=== PATIENT | male | born 1945 | race Caucasian/White ===

== ENCOUNTER 2016-08-22 06:18 | Day surgery (SDC) | payer MEDICARE, OTHER ==
[2016-08-22] MEDS ORDERED: Sodium Chloride 0.9% 1000 ML 1,000 ML IV SCH (06:45)
--- NOTE | 2016-08-22 07:52 | HP ---
DATE OF SURGERY: 08/22/2016 ADMISSION DIAGNOSIS: Epigastric pain, heartburn. ANTICIPATED PROCEDURE: EGD. HISTORY OF PRESENT ILLNESS: The patient had cholecystectomy two years ago. He seems to be getting worse epigastric pain. PAST MEDICAL HISTORY: ALLERGIES: NONE. MEDICATIONS: He has been on medications Losartan, hydrochlorothiazide, Verapamil. PAST SURGICAL HISTORY: Gallbladder. Double knee. SOCIAL HISTORY: Negative. FAMILY HISTORY: Negative. REVIEW OF SYSTEMS: PHYSICAL EXAMINATION: VITAL SIGNS: Normal. CHEST: Clear. COR: Regular. ABDOMEN: No palpable organomegaly or mass. IMPRESSION: Epigastric pain. PLAN: EGD.
[2016-08-22] MEDS ORDERED: DEMEROL 50 MG IJ ONE ×2 (08:00)
[2016-08-22] MEDS ORDERED: VERSED 5 MG/5 ML IV ONE (08:00)
[2016-08-22 11:07] VITALS: BP 135/79; PULSE 67; O2SAT 98
--- NOTE | 2016-08-22 13:00 | OP ---
SURGERY DATE: 08/22/16 SURGERY TIME: 819 PREOPERATIVE DIAGNOSIS: 1. EPIGASTRIC PAIN. POSTOPERATIVE DIAGNOSIS: 1. VERY LIGHT THRUSH OF THE ESOPHAGUS. 2. SUPERFICIAL GASTRIC ULCER. PROCEDURE: 1. EGD with biopsy for SARAH-test. SURGEON: Andrew French M.D. ANESTHESIA: IV sedation. COMPLICATIONS: None. CONDITION: Stable. INDICATION: Patient requiring evaluation. OPERATIVE PROCEDURE: Taken to endoscopy. Left lateral decubitus position. After suitable sedation obtained, scope introduced. There was a very light thrush in the lower pharynx/esophageal area. The esophagogastric junction slight irritation. There was a pinpoint gastric ulcer in the antrum. [employer] biopsy for SARAH-test. The duodenal bulb was satisfactory. 2nd portion satisfactory. The scope withdrawn and looped upon itself. Satisfactory. Scope withdrawn. IMPRESSION: 1. PINPOINT GASTRIC ULCER. 2. MILD THRUSH. Patient was given prescription for Protonix and also 2 Diflucan tablets.
== END 2016-08-22 10:00 | disposition home or self-care (01) ==
LOC: SDC 06:18
PROVIDERS: ATTEND Surgery
PROC: 0DB68ZZ Excision of Stomach, Via Natural or Artificial Opening Endoscopic (ICD-10-PCS; principal; 2016-08-22)
DX: B37.81 Candidal esophagitis (principal); R10.13 Epigastric pain; K25.9 Gastric ulcer, unspecified as acute or chronic, without hemorrhage or perforation
CPT/HCPCS: 87081; J2175; J2250

== ENCOUNTER 2019-09-09 08:54 | Day surgery (SDC) | payer MEDICARE, OTHER ==
--- NOTE | 2019-09-07 14:36 | HP ---
DATE OF SURGERY: 09/09/2019 ADMISSION DIAGNOSIS: Screening. ANTICIPATED PROCEDURE: Colonoscopy. HISTORY OF PRESENT ILLNESS: The patient was seen for screening colonoscopy, referred by Dr. Thomas. He had a colonoscopy back in 2012. PAST MEDICAL HISTORY: ALLERGIES: NONE. MEDICATIONS: Losartan, Carvedilol and hydrochlorothiazide. PAST SURGICAL HISTORY: Knee replacement. Gallbladder. SOCIAL HISTORY: Negative. FAMILY HISTORY: Negative. REVIEW OF SYSTEMS: Hypertension. PHYSICAL EXAMINATION: VITAL SIGNS: Normal. CHEST: Clear. COR: Regular. ABDOMEN: Satisfactory. PLAN: Colonoscopy.
[2019-09-09] MEDS ORDERED: DEMEROL 50 MG SDV IV ONE (08:55)
[2019-09-09] MEDS ORDERED: VERSED 5 MG/5 ML IV ONE (08:55)
[2019-09-09] MEDS ORDERED: Lactated Ringers 1,000 ML IV SCH (09:30)
[2019-09-09] MEDS ORDERED: Lactated Ringers 1,000 ML IV ONE (09:42)
[2019-09-09 12:44] VITALS: BP 143/75; PULSE 75; O2SAT 96
--- NOTE | 2019-09-10 07:46 | OP ---
SURGERY DATE/TIME: 09/09/2019 1129 PREOPERATIVE DIAGNOSIS: Screening. POSTOPERATIVE DIAGNOSIS: A 1.4 cm polyp at the base of the appendix. PROCEDURE: Colonoscopy complete to cecum with hot polypectomy x1. SURGEON: Andrew French M.D. ANESTHESIA: IV sedation 15 minutes monitored. COMPLICATIONS: None. CONDITION: Stable. INDICATION: A patient requiring evaluation. DESCRIPTION OF PROCEDURE: Taken to endoscopy suite. IV sedation titrated. Oximetry kept over 90%. Comfort level satisfactory. Anal digital examination satisfactory. Scope introduced. Prep was good but not excellent. The scope was advanced to the cecum. Base of cecum clearly identified. Appendiceal orifice clearly identified. There was a 1.4 cm polyp that was just a little inferior and medial to the orifice, this was taken with two bites with hot biopsy forceps. A very substantial polyp. It looked like it was totally coagulated. The rest of exam circumferential withdrawal was satisfactory. The patient tolerated the procedure satisfactorily. Follow up in three years.
== END 2019-09-09 12:55 | disposition home or self-care (01) ==
LOC: SDC 08:54
PROVIDERS: ATTEND Surgery
DX: Z12.11 Encounter for screening for malignant neoplasm of colon (principal); I10 Essential (primary) hypertension; K63.5 Polyp of colon; Z79.899 Other long term (current) drug therapy
CPT/HCPCS: 88305; J2175; J2250

== ENCOUNTER 2020-12-21 06:55 | Day surgery (SDC) | payer MEDICARE, OTHER ==
--- NOTE | 2020-12-15 13:43 | HP ---
DATE OF SURGERY: 12/21/2020 HISTORY OF PRESENT ILLNESS: The patient presented with complaints of "Killer heartburn". He had been on some Protonix and states it is not helping very much. He reports he has a history of gastroesophageal reflux disease. PAST MEDICAL HISTORY: Hypertension. PAST SURGICAL HISTORY: Knee surgery. Gallbladder removed. ALLERGIES: PENICILLLIN. MEDICATIONS: Losartan, carvedilol, aspirin, Cartia, doxazosin, hydrochlorothiazide. FAMILY HISTORY: None reported. SOCIAL HISTORY: None reported. REVIEW OF SYSTEMS: CONSTITUTIONAL: Denies fever or chills. CHEST: Denies shortness of breath. CVS: Denies chest pain. ABDOMEN: Reports epigastric pain. Denies nausea, vomiting, diarrhea, constipation or rectal bleeding. PHYSICAL EXAMINATION: GENERAL: No acute distress. CHEST: Nonlabored. No shortness of breath. CVS: Regular rate and rhythm. ABDOMEN: Soft, nontender to palpation. EXTREMITIES: No edema. NEUROLOGIC: Alert. PSYCHIATRIC: Appropriate. IMPRESSION: Gastroesophageal reflux disease, epigastric pain. PLAN: EGD with Dr. Andrew French. As dictated by Mckenzie Malik NP.
[2020-12-21] MEDS ORDERED: Lactated Ringers 1,000 ML IV ONE (07:06)
[2020-12-21] MEDS ORDERED: Lactated Ringers 1,000 ML IV SCH (07:30)
[2020-12-21] MEDS ORDERED: DIPRIVAN 200 MG/20 ML IV ONE (09:30)
[2020-12-21] MEDS ORDERED: Xylocaine-Mpf 2% 5 Ml Vial ONE (09:30)
[2020-12-21 11:00] VITALS: BP 132/78; PULSE 60; O2SAT 99
--- NOTE | 2020-12-21 13:03 | OP ---
SURGERY DATE/TIME: 12/21/2020 7904 PREOPERATIVE DIAGNOSIS: Severe reflux. POSTOPERATIVE DIAGNOSES: 1) Grade C/D gastroesophageal reflux disease. He has been on a little bit of Protonix. I think it probably has improved some. 2) He has a 1 inch hiatal hernia. PROCEDURE: EGD. SURGEON: Andrew French M.D. ANESTHESIA: MAC. COMPLICATIONS: None. CONDITION: Stable. INDICATION: A patient requiring evaluation. DESCRIPTION OF PROCEDURE: Taken to endoscopy. MAC sedation provided. Scope introduced. Pharyngoesophageal junction normal. Esophagus normal down to 38 cm with a 2 cm rim of esophagitis grade C/D and I think it probably has improved a little since he has been on Protonix. He has a 1 inch hiatal hernia very deliberate hernia, well defined. The rest of the body, antrum normal. Pylorus normal. Duodenal bulb normal. Second portion normal. Medial wall of the duodenum normal. Scope withdrawn looped upon itself. 1 inch hiatal hernia. Scope withdrawn. The patient tolerated the procedure satisfactorily.
== END 2020-12-21 10:40 | disposition home or self-care (01) ==
LOC: SDC 06:55
PROVIDERS: ATTEND Surgery
DX: K21.9 Gastro-esophageal reflux disease without esophagitis (principal); K44.9 Diaphragmatic hernia without obstruction or gangrene
CPT/HCPCS: 99100; J2704

== ENCOUNTER 2022-08-29 06:16 | Day surgery (SDC) | payer MEDICARE, OTHER ==
--- NOTE | 2022-08-28 11:30 | HP ---
DATE OF SURGERY: 08/29/2022 HISTORY OF PRESENT ILLNESS: The patient is a 77-year-old male who presents for endoscopy. He reports some diarrhea after having cholecystectomy. He also has some constipation. He stated he had some oily stools with crampy lower abdominal pain. His last scope was in 2019 and the patient had some polyps. He has been using some [id number] medicine that helped with the constipation. PAST MEDICAL HISTORY: Hypertension, diarrhea, constipation, gastroesophageal reflux disease. PAST SURGICAL HISTORY: Knee surgery. Cholecystectomy. ALLERGIES: PENICILLIN. MEDICATIONS: Doxazosin, Verapamil, losartan, hydrochlorothiazide, pantoprazole. FAMILY HISTORY: None reported. SOCIAL HISTORY: None reported. REVIEW OF SYSTEMS: CONSTITUTIONAL: Denies fever or chills. CHEST: Denies shortness of breath. CVS: Denies chest pain. ABDOMEN: Reports crampy abdominal pain. PHYSICAL EXAMINATION: GENERAL: No acute distress. CHEST: Nonlabored. No shortness of breath. CVS: Regular rate and rhythm. ABDOMEN: Soft. IMPRESSION: Change in bowel habits and history of colon polyps. PLAN: Colonoscopy with Dr. Andrew French. As dictated by Mckenzie Malik NP.
[2022-08-29] MEDS: Lactated Ringers 1,000 ML IV SCH (06:44)
[2022-08-29] MEDS ORDERED: Xylocaine-Mpf 2% 5 Ml Vial ONE (09:20)
[2022-08-29] MEDS ORDERED: DIPRIVAN 200 MG/20 ML IV ONE ×2 (09:20→09:33)
[2022-08-29] MEDS ORDERED: GlucaGen 1 MG ONE (09:28)
[2022-08-29] MEDS ORDERED: Ephedrine Sulfate 50 MG/ML ONE (09:37)
[2022-08-29 10:12] VITALS: O2SAT 97
[2022-08-29 10:32] VITALS: BP 111/77; PULSE 78
--- NOTE | 2022-08-29 13:05 | OP ---
SURGERY DATE/TIME: 08/29/2022 0922 PREOPERATIVE DIAGNOSIS: Five year follow up of polyps. POSTOPERATIVE DIAGNOSIS: One polyp at 90 cm of 1 cm. PROCEDURES: 1) Colonoscopy complete to cecum. 2) Hot polypectomy x1. SURGEON: Andrew French M.D. ANESTHESIA: MAC. COMPLICATIONS: None. CONDITION: Stable. INDICATION: The patient presents for five year follow up. He also has oily stools and has been on treatment for this for some time. His prescription was rewritten today as he had been out for a while. DESCRIPTION OF PROCEDURE: Anal digital examination satisfactory. Scope introduced. The scope advanced to the cecum. Base of the cecum, ileocecal valve, appendiceal orifice normal. Ascending, hepatic, transverse and mid transverse 90 cm a 1 cm polyp taken with hot biopsy forceps to extinction. Distal transverse, splenic, descending, sigmoid, rectum, anus satisfactory. The patient tolerated the procedure satisfactorily. Five year follow up. The prep score was good.
[2022-09-03 08:50] LABS: SURGICAL PATHOLOGY SEE COMMENTS
== END 2022-08-29 10:41 | disposition home or self-care (01) ==
LOC: SDC 06:16
PROVIDERS: ATTEND Surgery
DX: Z09 Encounter for follow-up examination after completed treatment for conditions other than malignant neoplasm (principal); Z86.010 Personal history of colon polyps; D12.6 Benign neoplasm of colon, unspecified
CPT/HCPCS: 99100; J1610; J2704